=== PATIENT | female | born 1955 | race Caucasian/White ===

== ENCOUNTER 2024-04-22 06:12 | Outpatient (CLI) | payer MEDICARE, OTHER ==
[~2024-04-22 06:12] MED LIST: HYDR-4383 PO
[2024-04-22] MEDS ORDERED: iohexol 300 MG/1 ML 50ml polymer ONE (06:41)
[2024-04-22] MEDS ORDERED: LIDOcaine 1% 30ml preserv. free vial ONE (06:41)
[2024-04-22] MEDS ORDERED: GADOTERATE MEGLUMINE 7.5 MMOL/15 ML VIAL IV ONE (06:41)
[2024-04-22] MEDS ORDERED: LIDOcaine 1%/PF 5ML 10 MG/ML VIAL ONE (06:43)
== END 2024-04-22 23:59 | disposition home or self-care (01) ==
LOC: RAD 06:12
PROVIDERS: ATTEND Physician Assistant
DX: S63.501A Unspecified sprain of right wrist, initial encounter (principal); M66.241 Spontaneous rupture of extensor tendons, right hand; M79.601 Pain in right arm; M25.531 Pain in right wrist; M67.431 Ganglion, right wrist; M77.8 Other enthesopathies, not elsewhere classified; X58.XXXA Exposure to other specified factors, initial encounter; Y93.89 Activity, other specified; Y92.89 Other specified places as the place of occurrence of the external cause; Y99.8 Other external cause status
CPT/HCPCS: 25246; 73222; 77002; A9575; J2001; J3490; Q9967; 73115

== ENCOUNTER 2024-08-24 09:34 | Outpatient (CLI) | payer MEDICARE, OTHER | END 2024-08-24 23:59 | disposition home or self-care (01) | LOC: MRI02 09:34 | PROVIDERS: ATTEND Physician Assistant | DX: S63.501A Unspecified sprain of right wrist, initial encounter (principal); M19.031 Primary osteoarthritis, right wrist; M67.431 Ganglion, right wrist; M25.531 Pain in right wrist; Z87.898 Personal history of other specified conditions; X58.XXXA Exposure to other specified factors, initial encounter; Y93.89 Activity, other specified; Y92.89 Other specified places as the place of occurrence of the external cause; Y99.8 Other external cause status | CPT/HCPCS: 73221 ==